=== PATIENT | female | born 1995 | race African-American/Black ===

== ENCOUNTER 2017-07-24 10:11 | Emergency (ER) | payer OTHER ==
[2017-07-24 10:17] VITALS: TEMP 98.8; BMI 24.8
--- NOTE | 2017-07-24 10:42 | PDOC ---
History of Present Illness - General Chief Complaint: Nausea/Vomiting Stated Complaint: REVISIT, NAUSEA/VOMITING Time Seen by Provider: 07/24/17 10:30 - History of Present Illness Initial Comments: 22 yo F with 07/24/17 11:11 22 yo F with no significant pmh who presents with abdominal pain. Patient reports worsenign, generalized, crampy abdominal pain and worsening substernal burning beginning 07/24/17. Pain non positional with no alleviators. Ongoing nausea and biliary emesis since 07/24, worse with PO intake. Emesis decreased in frequency, attributed by pt. to decreased PO intake. Last bowel movement yesterday with normal stool consistency. Patient recently seen in ED at [facility] with absent laboratory abnormalities, and no imaging performed. Home Ondansetron use with no improvement in symptoms. Denies F/C, hematemesis, BPR, diarrhea, constipation, dysuria, urinary complaints. No CP, SOB, lightheadedness , weakness, sensory changes. Denies h/o abdominal procedures or GI pathology. Does not follow with GI. Reports bimonthly social alcohol use. Denies tobacco use, but endorses monthly marijuana use.No recent sick contacts, or travel. Past History - Past Medical History Allergies/Adverse Reactions: Allergies Allergy/AdvReac Type Severity Reaction Status Date / Time No Known Allergies Allergy Verified 07/24/17 10:14 Home Medications: Ambulatory Orders Ondansetron [Zofran *Odt*] 8 mg SL BID #10 od.tablet 07/22/17 Famotidine [Pepcid -] 20 mg PO BID #60 tablet 07/24/17 Pantoprazole Sodium [Protonix -] 40 mg PO DAILY #30 tablet.ec 07/24/17 Cardiac Disorders: Yes (heart murmur) COPD: No - Suicide/Smoking/Psychosocial Hx Smoking History: Never smoked Have you smoked in the past 12 months: No Information on smoking cessation initiated: No Hx Alcohol Use: No Drug/Substance Use Hx: Yes Substance Use Type: Marijuana Review of Systems - Review of Systems Comments:: 07/24/17 10:41 GENERAL/CONSTITUTIONAL: No fever or chills. No weakness. HEAD, EYES, EARS, NOSE AND THROAT: No change in vision. No ear pain or discharge. No sore throat.- CARDIOVASCULAR: + chest pain. No shortness of breath RESPIRATORY: No cough, wheezing, or hemoptysis. GASTROINTESTINAL: + nausea, vomiting, and abdominal pain .No diarrhea or constipation. GENITOURINARY: No dysuria, frequency, or change in urination. MUSCULOSKELETAL: No joint or muscle swelling or pain. No neck or back pain. SKIN: No rash NEUROLOGIC: No headache, vertigo, loss of consciousness, or change in strength/ sensation. ENDOCRINE: No increased thirst. No abnormal weight change HEMATOLOGIC/LYMPHATIC: No anemia, easy bleeding, or history of blood clots. ALLERGIC/IMMUNOLOGIC: No hives or skin allergy. *Physical Exam - Vital Signs Last Vital Signs Temp Pulse Resp BP Pulse Ox 98.8 F 77 12 141/86 100 07/24/17 10:14 07/24/17 10:14 07/24/17 10:14 07/24/17 10:14 07/24/17 10:14 - Physical Exam Comments: 07/24/17 10:41 GENERAL: Awake, alert, and fully oriented, in no acute distress HEAD: No signs of trauma, normocephalic, atraumatic EYES: PERRLA, EOMI, sclera anicteric, conjunctiva clear ENT:Hearing grossly normal, nares patent, oropharynx clear without exudates. Moist mucosa NECK: Normal ROM, supple, no lymphadenopathy, JVD, or masses LUNGS: No distress, speaks full sentences, clear to auscultation bilaterally HEART: Regular rate and rhythm, normal S1 and S2, no murmurs, rubs or gallops, peripheral pulses normal and equal bilaterally. ABDOMEN: Soft, + epigastirc ttp L>R. Generalized ttp. NDS, normoactive bowel sounds. No guarding, no rebound, no rigidity. No masses. Neg CVA ttp. Neg surprabic ttp. EXTREMITIES : Normal inspection, Normal range of motion, no edema. No clubbing or cyanosis. SKIN: Warm, Dry, normal turgor, no rashes or lesions noted ED Treatment Course - LABORATORY CBC & Chemistry Diagram: 07/24/17 11:09 07/24/17 11:09 Medical Decision Making - Medical Decision Making 07/24/17 11:26 22 yo F with no significant pmh who presents with worsening, generalized, crampy abdominal pain and substernal burning beginning 07/24/17. Pain non positional with no alleviators. Ongoing nausea and biliary emesis since 07/24, worse with PO intake. Recent ED visit at [facility] 07/22 with absent laboratory abnormalities, and no imaging performed. Home Ondansetron use with no improvement in symptoms. Denies CP, SOB, F/C, hematemesis, BPR, diarrhea, constipation, dysuria, urinary complaints, lightheadedness, weakness, sensory changes. Denies h/o abdominal procedures or GI pathology. Endorses monthly marijuana use. Pt. presentation, symptoms, and physical findings consistent with gastritis vs. esophagitis. DDx: Gastritis, esophagitis, cyclical vomiting, gastroenteritis, colitis, choleycystitis, pancreatitis ED Course: CBC, CMP, lipase UA, Urine preg NS 1 L Carafate, VL 2 %, Maloox, Ranitidine 07/24/17 12:18 CBC, CMP: Unremarkable 07/24/17 13:43 RUQ U/S: No evidence of cholelithiasis, cholecysttitis, or CBD dilatation. Patient stable and symptoms improved. Advsied to f/u with outpatient GI for symtpoms, with return precautions. Pepcid and Protonix sent to pharmacy. *DC/Admit/Observation/Transfer Diagnosis at time of Disposition: Nausea & vomiting Qualifiers: Vomiting type: bilious vomiting Qualified Code(s): R11.14 - Bilious vomiting - Discharge Dispostion Condition at time of disposition: Stable - Referrals Referrals: Minh Hillman MD [Staff Physician] - - Patient Instructions Printed Discharge Instructions: DI for Vomiting -- Adult Additional Instructions: Please return to the emergency department with any new or worsening symptoms or concerns. Please follow up with gastroenterology within the next 1 week. Take Pepcid two times a day as needed for 10 days. Take Pantaprazole daily for one month. - Post Discharge Activity - Attestations Physician Attestion: 07/24/17 11:45 I attest to the information provided in this note.
[2017-07-24] MEDS ORDERED: LIDOCAINE VISCOUS 2% ORAL/TOP 20 ML UNIT-DOSE CUP MM ONE (11:11)
[2017-07-24] MEDS ORDERED: MAG HYDROX/AL HYDROX/SIMETH 30 ML UNIT-DOSE CUP PO ONE (11:11)
[2017-07-24] MEDS ORDERED: RANITIDINE HCL 150 MG TABLET (FP) PO ONE (11:12)
[2017-07-24] MEDS ORDERED: SUCRALFATE 1 GM TABLET (FP) PO ONE (11:15)
[2017-07-24] MEDS ORDERED: SODIUM CHLORIDE 1,000 ML IV STA (11:19)
[2017-07-24] MEDS ORDERED: LIDOCAINE VISCOUS 2% ORAL/TOP 20 ML UNIT-DOSE CUP ONE (11:25)
[2017-07-24] MEDS ORDERED: MAG HYDROX/AL HYDROX/SIMETH 30 ML UNIT-DOSE CUP ONE (11:25)
[2017-07-24] MEDS ORDERED: RANITIDINE HCL 150 MG TABLET (FP) ONE (11:25)
[2017-07-24] MEDS ORDERED: SUCRALFATE 1 GM TABLET (FP) ONE (11:25)
[2017-07-24 11:32] LABS: BASO % 0.3 % (0-2.0); HEMATOCRIT 44.6 % (32.4-45.2); HEMOGLOBIN 15.1 GM/dL (10.7-15.3); MCH 26.1 pg (25.7-33.7); MEAN CELL VOLUME 76.7 fl (80-96); MEAN PLT VOLUME 8.5 fl (7.5-11.1); MONO % 7.8 % (3.8-10.2); NEUT % 75.9 % (42.8-82.8); PLATELET COUNT 330 K/MM3 (134-434); RBC 5.81 M/mm3 (3.60-5.2); RDW 14.7 % (11.6-15.6); WHITE BLOOD COUNT 5.6 K/mm3 (4.0-10.0)
[2017-07-24] MEDS ORDERED: ONDANSETRON 4 MG/2 ML VIAL IVPB ONE (11:37)
[2017-07-24] MEDS ORDERED: ONDANSETRON 4 MG/2 ML VIAL ONE (11:39)
[2017-07-24 11:48] LABS: ALK PHOS 48 U/L (45-117); ANION GAP 12 (8-16); BILIRUBIN,TOTAL 1.5 mg/dL (0.2-1.0); BLOOD UREA NITROGEN 8 mg/dL (7-18); CALCIUM 9.8 mg/dL (8.5-10.1); CHLORIDE 99 mmol/L (98-107); CO2 23 mmol/L (21-32); CREATININE 0.8 mg/dL (0.55-1.02); GLUCOSE,RANDOM 84 mg/dL (74-106); POTASSIUM 3.4 mmol/L (3.5-5.1); SGOT/AST 14 U/L (15-37); SGPT/ALT 11 U/L (12-78); SODIUM 134 mmol/L (136-145); TOT PROT 8.9 g/dl (6.4-8.2)
--- NOTE | 2017-07-24 12:28 | PDOC ---
Attending Attestation - Resident Resident Name: Shar Rico - ED Attending Attestation I have performed the following: I have examined & evaluated the patient, The case was reviewed & discussed with the resident, I agree w/resident's findings & plan, Exceptions are as noted - HPI HPI: 07/24/17 12:26 Healthy 22-year-old female second visit in 3 days for epigastric pain with nausea/vomiting. Patient had localized, sharp epigastric pain that began 2 days ago, associated with nonbloody but bilious vomiting. Was seen here, labs within normal limits, and discharged home on Zofran. Patient presents now with persistent epigastric pain and intractable vomiting with decreased by mouth intake. No diarrhea or melena or bright red blood per rectum. Never had an endoscopy. Recreational marijuana and alcohol intake, possibly once a week. Last EtOH was day prior to onset, but only had one to 2 drinks. - Physicial Exam PE: 07/24/17 12:27 Afebrile. Urine negative on 07/22 No jaundice or pallor Abdomen is soft/nondistended. Epigastric and left upper quadrant tenderness to palpation with some guarding, no rebound. Bowel sounds are normal. No CVA tenderness. - Medical Decision Making 07/24/17 12:28 Patient seen and evaluated with the resident. I agree with the overall evaluation, assessment, and management with the following summary of visit: 22-year-old female with persistent epigastric pain in the setting of nausea/ vomiting. Presentation is most consistent with gastritis/dyspepsia, rule out biliary or pancreatic etiology. Possibly viral etiology. Labs, urinalysis Antacid, Maalox IV fluid rehydration Reassess
[2017-07-24 12:56] LABS: HCG,QUALITATIVE URINE NEGATIVE; URINE APPEARANCE CLEAR; URINE BILIRUBIN NEGATIVE (NEGATIVE); URINE BLOOD 1+ (NEGATIVE); URINE COLOR LTYELLOW; URINE GLUCOSE (UA) NEGATIVE (NEGATIVE); URINE KETONE 2+ (NEGATIVE); URINE LEUK ESTERASE NEGATIVE (NEGATIVE); URINE NITRITE NEGATIVE (NEGATIVE); URINE PROTEIN NEGATIVE (NEGATIVE); URINE UROBILINOGEN NEGATIVE mg/dL (0.2-1.0)
[2017-07-24 13:02] LABS: EPI CELLS FEW /HPF (FEW); URINE MUCUS RARE
[2017-07-24 13:29] LABS: BILIRUBIN,DIRECT 0.3 mg/dL (0.0-0.2)
[2017-07-24 14:03] VITALS: BP 156/98; PULSE 84
== END 2017-07-24 14:03 | disposition home or self-care (01) ==
LOC: JER 10:11
PROC: 3E0337Z Introduction of Electrolytic and Water Balance Substance into Peripheral Vein, Percutaneous Approach (ICD-10-PCS; principal; 2017-07-24)
PROC: 3E033GC Introduction of Other Therapeutic Substance into Peripheral Vein, Percutaneous Approach (ICD-10-PCS; 2017-07-24)
DX: R11.14 Bilious vomiting (principal)
CPT/HCPCS: 36415; 76705-TC; 80053; 81003; 81015; 82248; 83690; 84703; 85025; 96361; 96374; 99283-25